=== PATIENT | female | born 1995 | race African-American/Black ===

== ENCOUNTER 2016-08-26 | Emergency (ER) | payer OTHER ==
[~2016-08-26] VITALS: Ht 152.4 cm; Wt 49.9 kg
--- NOTE | 2016-08-26 | NUR ---
PT. BIB PD TO OF 1
[2016-08-26 00:05] VITALS: BP 97/64
--- NOTE | 2016-08-26 00:05 | NUR ---
20Y/F BIB PD TO ED FOR PREBOOK; SKIN IS PINK/WARM/DRY; AAOX4 WITH EVEN AND STEADY GAIT; LUNGS CLEAR BL; HR EVEN AND REGULAR; PT DENIES ANY FEVER, CP, SOB, OR COUGH AT THIS TIME; PATIENT STATES PAIN OF 0/10 AT THIS TIME; VSS; ER MD MADE AWARE OF PT STATUS.
--- NOTE | 2016-08-26 00:30 | NUR ---
Patient being evaluated by at bedside.
--- NOTE | 2016-08-26 00:48 | NUR ---
PATIENT BIB [employer]. PATIENT EXAMINED BY DR. NAVARRETE. PATIENT MEDICALLY CLEARED AND RELEASED IN CUSTODY IN STABLE CONDITION. ORIGINAL PRE-BOOK FORM GIVEN TO OFFICER Evangelina ONEILL.
[2016-08-26 00:54] VITALS: BP 97/64
== END 2016-08-26 00:48 ==
LOC: MED
CPT/HCPCS: 99283